=== PATIENT | male | born 1995 | race Caucasian/White ===

== ENCOUNTER 2019-08-22 03:05 | Inpatient (IN) | payer BC, MEDICAID, OTHER ==
[~2019-08-22] VITALS: Ht 193 cm; Wt 140.2 kg
[2019-08-22 03:10] VITALS: BP 140/81
--- NOTE | 2019-08-22 03:10 | NUR ---
TO BED # 11AMBULATORY
--- NOTE | 2019-08-22 03:15 | NUR ---
24 yo male bib mother for c/o r flank pain. pt denies fever chills. pt denies hematuria. pain started around 1630 yesterday. pt aaox4, clear even unlabored breath sounds. denies cp/sob. abd soft non distended. pt voiding clear yellow urine. skin intact. gurney locked in lowest position. hx: denies ax: denies
--- NOTE | 2019-08-22 03:32 | NUR ---
Dr. Nation examining patient
[2019-08-22] MEDS ORDERED: NACL 0.9% 1,000 ML IV ONE (03:34)
[2019-08-22] MEDS ORDERED: ONDANSETRON 4 MG/2 ML VIAL IVP ONE ×2 (03:35→05:45)
[2019-08-22] MEDS ORDERED: KETOROLAC 30 MG/ML VIAL IVP ONE ×2 (03:35→04:00)
[2019-08-22] MEDS ORDERED: MORPHINE SULFATE 4 MG/ML SYR IVP ONE ×2 (03:35→04:00)
[2019-08-22 03:44] LABS: BASOPHILS # (AUTO) 0.1 K/uL (0.00-0.22); BASOPHILS % (AUTO) 0.4 % (0.0-2.0); EOSINOPHILS # (AUTO) 0.1 K/uL (0-0.4); EOSINOPHILS % (AUTO) 0.8 % (0.0-4.0); HEMOGLOBIN 15.2 g/dL (12.0-18.0); LYMPHOCYTES # (AUTO) 3.7 K/uL (2.0-11.5); LYMPHOCYTES % (AUTO) 27.6 % (20.5-51.1); MEAN CORPUSCULAR HEMOGLOBIN 29 pg (27-31); MEAN CORPUSCULAR HGB CONC 34 g/dL (33-37); MEAN CORPUSCULAR VOLUME 87.1 fL (80-94); MONOCYTES # (AUTO) 0.9 K/uL (0.8-1.0); MONOCYTES % (AUTO) 6.9 % (1.7-9.3); NEUTROPHILS # (AUTO) 8.7 K/uL (1.8-7.7); NEUTROPHILS % (AUTO) 64.3 % (42.2-75.2); PLATELET COUNT (AUTO) 233 K/uL (140-450); RED BLOOD CELL COUNT(AUTO) 5.17 MIL/uL (4.20-6.10); RED CELL DISTRIBUTION WIDTH 12.9 % (11.6-13.7); WHITE BLOOD COUNT (AUTO) 13.5 K/uL (4.8-10.8)
[2019-08-22 03:55] LABS: ANION GAP 14.5 (8-16); CARBON DIOXIDE 26.5 mmol/L (21-32); CREATININE 0.9 mg/dL (0.7-1.3)
[2019-08-22 03:57] LABS: APPEARANCE,URINE CLEAR (CLEAR); BILIRUBIN,URINE NEGATIVE (NEGATIVE); BLOOD, URINE NEGATIVE (NEGATIVE); COLOR,URINE YELLOW (YELLOW); LEUKOCYTE ESTERASE ,URINE NEGATIVE (NEGATIVE); NITRITE, URINE NEGATIVE (NEGATIVE); PH,URINE 6.5 (5.0-9.0); UGLUCOSE NEGATIVE (NEGATIVE)
[2019-08-22 04:00] LABS: ALBUMIN 4.5 g/dL (3.4-5.0); TOTAL BILIRUBIN 0.5 mg/dL (0.0-1.0)
--- NOTE | 2019-08-22 04:43 | NUR ---
PT TAKEN TO CT VIA WHEELCHAIR.
--- NOTE | 2019-08-22 05:03 | NUR ---
PT RETURN FROM CT
[2019-08-22] MEDS ORDERED: MORPHINE SULFATE 10 MG/ML VIAL IVP ONE (05:45)
[2019-08-22] MEDS ORDERED: PIPERACILLIN/TAZOBACTAM 3.375 GM in DEXTROSE 5% 50 ML IV ONE (05:45)
[2019-08-22] MEDS ORDERED: metroNIDAZOLE 500 MG/NS PREMIX 100 ML IV ONE (05:45)
[2019-08-22] MEDS ORDERED: PIPERACILLIN/TAZOBACTAM 3.375 GM VIAL IV ONE (05:50)
[2019-08-22] MEDS ORDERED: ONDANSETRON 4 MG/2 ML VIAL IM/IVP PRN (06:35)
[2019-08-22] MEDS ORDERED: MORPHINE SULFATE 2 MG/ML SYR IVP PRN (06:35)
[2019-08-22] MEDS ORDERED: ACETAMINOPHEN 325 MG TAB PO PRN (06:35)
[2019-08-22] MEDS ORDERED: HYDROcodone/APAP 7.5/325 MG 1 TAB PO PRN (06:35)
--- NOTE | 2019-08-22 06:50 | NUR ---
Patient will be admitted to care of dr. nuñez. Admited to [facility] 120A. Belongings list completed. Report to [facility].
[2019-08-22 07:12] LABS: BARBITURATE, URINE NEG. ng/ml (NEG <=200); BENZODIAZEPINE, URINE NEG. ng/mL (NEG <=200); CANNABINOID, URINE POS. ng/mL (NEG <=50); COCAINE, URINE NEG. ng/mL (NEG <=300); OPIATE, URINE NEG. ng/mL (NEG <=2000); PHENCYCLIDINE SCREEN,URINE NEG. ng/mL (NEG <=25)
--- NOTE | 2019-08-22 07:19 | NUR ---
REPORT RECEIVED FROM DENTAL SALES REPRESENTATIVE NURSE CHAVA, PT RESTING QUIETLY IN NAD, RESP EVEN UNLABORED, SKIN WARM DRY, SPEAKS CLEARLY, OX4, DENIES PAIN OR DISCOMFORT AT THIS TIME, MOTHER AT BEDSIDE, PT ORIENTED TO ROOM AND FLOOR, CALL ANDREWS WITHIN REACH, SIDE RAILS UPX2, BED LOCKED IN LOW POSITION, POC DISCUSSED, MRSA SWAB DONE, NO IMMEDIATE NEEDS AT THIS TIME, WILL CONTINUE TO MONITOR.
[2019-08-22 07:30] VITALS: BP 127/83
[2019-08-22] MEDS: NACL 0.9% 1,000 ML IV SCH ×3 (07:30→20:16)
[2019-08-22 07:47] LABS: CHOL/HDL RATIO 3.9 (1-4.5); FREE T4 (FREE THYROXINE) 0.93 ng/dL (0.76-1.46); PHOSPHORUS 4.1 mg/dL (2.5-4.9); THYROID STIMULATING HORMONE 2.8 uIU/mL (0.34-3.74)
--- NOTE | 2019-08-22 07:55 | NUR ---
PT PROVIDED WITH CHLORHEX WIPES, PT REMOVED ALL CLOTHINGS AND REMOVABLE ITEMS, CHANGED IN TO [facility].
--- NOTE | 2019-08-22 08:28 | NUR ---
PT C/O RIGHT LQ ABD PAIN, MEDICATED WITH MORPHINE AT THIS TIME.
[2019-08-22] MEDS ORDERED: BUPIVACAINE-MPF/EPI 0.5% 30 ML VIAL INJ ONE (09:02)
[2019-08-22] MEDS ORDERED: fentaNYL 0.05 MG/ML VIAL ONE (09:03)
[2019-08-22] MEDS ORDERED: HYDROmorphone PFS 2 MG/ML SYR ONE (09:04)
[2019-08-22] MEDS ORDERED: ceFAZolin 1,000 MG VIAL ONE (09:15)
[2019-08-22] MEDS ORDERED: NEOSTIGMINE 1:1000 10 MG/10 ML VIAL ONE (09:20)
[2019-08-22] MEDS ORDERED: DESFLURANE 240 ML BTL INH ONE (09:20)
[2019-08-22] MEDS ORDERED: ROCURONIUM 50 MG/5 ML VIAL IV ONE (09:20)
[2019-08-22] MEDS ORDERED: SUCCINYLCHOLINE CHLORIDE 200 MG/10 ML VIAL IVP ONE ×2 (09:20→09:23)
[2019-08-22] MEDS ORDERED: PROPOFOL 200 MG/20 ML VIAL IV ONE (09:20)
[2019-08-22] MEDS ORDERED: GLYCOPYRROLATE 0.2 MG/ML VIAL ONE (09:20)
[2019-08-22] MEDS ORDERED: ONDANSETRON 4 MG/2 ML VIAL ONE (09:20)
[2019-08-22] MEDS ORDERED: KETOROLAC 30 MG/ML VIAL ONE (09:20)
[2019-08-22] MEDS ORDERED: DEXAMETHASONE 4 MG/ML VIAL ONE (09:20)
--- NOTE | 2019-08-22 09:20 | NUR ---
PT TAKEN TO OR IN BED.
[2019-08-22] MEDS ORDERED: ONDANSETRON 4 MG/2 ML VIAL IVP PRN (11:15)
[2019-08-22] MEDS ORDERED: HYDROmorphone 1 MG/ML AMP IVP PRN (11:15)
[2019-08-22] MEDS ORDERED: CIPR500T4 PO (11:22)
[2019-08-22] MEDS ORDERED: LACTOBACILLUS RHAMNOSUS GG 1 EACH CAP PO SCH (11:27)
[2019-08-22] MEDS: IBUPROFEN 600 MG TAB PO SCH ×2 (12:00→18:48)
--- NOTE | 2019-08-22 12:30 | NUR ---
PT RETURNED BACK FROM PACU, PT ACTIVELY VOMITING, REPORT RECEIVED FROM [facility], WILL MEDICATE WITH ZOFRAN
--- NOTE | 2019-08-22 13:30 | NUR ---
PT SLEEPING QUIETLY IN NO ACUTE DISTRESS, PT'S MOTHER AT BEDSIDE. VITALS STABLE, SEE POST OP VS SHEET.
[2019-08-22] MEDS: PIPERACILLIN/TAZOBACTAM 3.375 GM in DEXTROSE 5% 50 ML IV SCH ×3 (13:42→23:18)
[2019-08-22] MEDS: metroNIDAZOLE 500 MG/NS PREMIX 100 ML IV SCH ×2 (14:36→20:16)
--- NOTE | 2019-08-22 15:20 | NUR ---
PATIENT HAS BEEN SCREENED AND CATEGORIZED LOW NUTRITION RISK. PATIENT WILL BE SEEN WITHIN 7 DAYS OF ADMISSION. 08/29/[address]
--- NOTE | 2019-08-22 15:38 | NUR ---
PAIN MED GIVEN FOR ABD PAIN 05/07, PT MOVED TO ROOM 106A, DENIES N/V, SHASTA CLEAR LIQ WELL, PT WANTS TO ADVANCE DIET, PER DR AGOSTO, PT TO REMAIN CLEAR LIQ UNTIL TOMORROW PER DR BAEZA. PT MADE AWARE, UNDERSTANDS
[2019-08-22 16:00] VITALS: BP 100/53
--- NOTE | 2019-08-22 16:45 | NUR ---
PT SLEEPING IN NO ACUTE DISTRESS, MOTHER AT BEDSIDE, DENIES ANY NEEDS, ALL SAFETY MEASURES IN PLACE.
--- NOTE | 2019-08-22 18:53 | NUR ---
PT UP OUT OF BED WITHOUT ASSIST, AMBULATES TO BATHROOM WITH STEADY GAIT, DENIES FEELING DIZZY OR LIGHT HEADED, IV ZOSYN STARTED PER ORDER.
--- NOTE | 2019-08-22 19:15 | NUR ---
REPORT GIVEN TO FALAFEL CART COOK NURSE, PT IN STABLE CONDITION.
--- NOTE | 2019-08-22 19:16 | NUR ---
Received report from AM Shift RN. Patient awake with family at bedside. Denies pain at this time. IV site on L AC running with IVF. Safety precautions in place.
--- NOTE | 2019-08-22 21:15 | NUR ---
Rounds done. Patient awake in bed, watching TV. Denies pain at this time. Will continue to monitor.
--- NOTE | 2019-08-22 23:10 | NUR ---
Rounds done. Patient asleep at this time. Visible chest rise and fall noted. Will continue to monitor.
[2019-08-22] MEDS: HYDROcodone/APAP 5/325 MG 1 TAB TAB PO PRN (23:18)
[2019-08-23] VITALS: BP 110/62
--- NOTE | 2019-08-23 01:07 | NUR ---
Checks done. Patient awake watching on his phone. Denies pain at this time. Will continue to monitor.
[2019-08-23] MEDS: NACL 0.9% 1,000 ML IV SCH ×3 (02:55→14:03)
--- NOTE | 2019-08-23 03:05 | NUR ---
Changed IV fluid bag. Patient denies pain at this time. Resting comfortably in bed. Will continue to monitor.
[2019-08-23] MEDS: metroNIDAZOLE 500 MG/NS PREMIX 100 ML IV SCH ×3 (04:04→20:09)
--- NOTE | 2019-08-23 04:25 | NUR ---
Due Flagyl given. No distress noted.
[2019-08-23] MEDS: HYDROmorphone 1 MG/ML AMP IVP PRN ×3 (04:57→19:06)
[2019-08-23] MEDS: PIPERACILLIN/TAZOBACTAM 3.375 GM in DEXTROSE 5% 50 ML IV SCH ×3 (05:00→17:41)
--- NOTE | 2019-08-23 06:05 | NUR ---
Patient comfortable in bed. Due medications given. Vital stable. Will endorse to AM shift RN for continuity of care.
[2019-08-23 06:56] LABS: HEMATOCRIT 40.1 % (36-52); HEMOGLOBIN 13.2 g/dL (12.0-18.0); LYMPHOCYTES % (AUTO) 14.4 % (20.5-51.1); MEAN CORPUSCULAR HEMOGLOBIN 29 pg (27-31); MEAN CORPUSCULAR HGB CONC 33 g/dL (33-37); MEAN CORPUSCULAR VOLUME 87.6 fL (80-94); MONOCYTES # (AUTO) 0.9 K/uL (0.8-1.0); MONOCYTES % (AUTO) 6.6 % (1.7-9.3); NEUTROPHILS # (AUTO) 10.8 K/uL (1.8-7.7); PLATELET COUNT (AUTO) 211 K/uL (140-450); RED BLOOD CELL COUNT(AUTO) 4.58 MIL/uL (4.20-6.10); RED CELL DISTRIBUTION WIDTH 13.2 % (11.6-13.7); WHITE BLOOD COUNT (AUTO) 13.7 K/uL (4.8-10.8)
--- NOTE | 2019-08-23 07:10 | NUR ---
RECEIVED REPORT FROM EDUCATIONAL MANAGER NURSE. PATIENT IS IN BED, IN STABLE CONDITION. RESPIRATION EVEN AND UNLABORED. IV INTACT TO LAC 18G. IVF INFUSING AT 160ML/HR TOLERATING WELL. WILL CONTINUE TO MONITOR. CALL LIGHT WITHIN REACH.
[2019-08-23 08:00] VITALS: BP 110/58
[2019-08-23] MEDS: LACTOBACILLUS RHAMNOSUS GG 1 EACH CAP PO SCH (08:31)
[2019-08-23] MEDS: IBUPROFEN 600 MG TAB PO SCH ×3 (08:31→17:40)
[2019-08-23 09:54] LABS: MAGNESIUM 1.9 mg/dL (1.8-2.4)
--- NOTE | 2019-08-23 11:00 | NUR ---
RECEIVED REPORT FROM KOLTON JOINER FOR CONTINUITY OF CARE. PATIENT IN STABLE CONDITION.
[2019-08-23] MEDS ORDERED: INFLUENZA VACCINE QUAD 0.5 ML SYR IMVAC PRN (12:05)
[2019-08-23 12:21] LABS: ANION GAP 17.8 (8-16); CARBON DIOXIDE 22.3 mmol/L (21-32); CREATININE 0.7 mg/dL (0.7-1.3); POTASSIUM 4.1 mmol/L (3.5-5.1)
--- NOTE | 2019-08-23 13:00 | NUR ---
PATIENT SITTING DOWN IN BED WITH LUNCH TRAY IN FRONT. NO DISTRESS NOTED. PAIN WITHIN TOLERABLE. SCHEDULED MEDICATIONS DUE GIVEN. WILL CONTINUE TO MONITOR.
--- NOTE | 2019-08-23 14:03 | NUR ---
PATIENT LYING DOWN IN BED SLEEPING, AROUSABLE BY VOICE. NO DISTRESS NOTED. SCHEDULED MEDICATIONS DUE GIVEN. WILL CONTINUE TO MONITOR.
[2019-08-23 16:00] VITALS: BP 110/51
--- NOTE | 2019-08-23 17:44 | NUR ---
PATIENT AMBULATING AROUND [facility] HALLWAYS AND BACK TO BED WITH STEADY GAIT. SCHEDULED MEDICATIONS DUE GIVEN. WILL CONTINUE TO MONITOR.
--- NOTE | 2019-08-23 19:24 | NUR ---
GAVE REPORT TO TRACK WALKER NURSE FOR CONTINUITY OF CARE. PATIENT IN STABLE CONDITION.
--- NOTE | 2019-08-23 19:24 | NUR ---
RECIEVED PT AAOX4 , AMBULATORY , NID , WITH C/O OF PAIN ON SUGICAL SITE - JUST MEDICATED WITH DILAUDID , SURGICAL SITE INTACT AND NO SIGNS OF ACTIVE BLEEDING . NID , V/S WNL , IV SITE INTACT AND PATENT N. REG DIET TOLERATED . ON SAFETY PREACAUTION PROTOCOL - REMINDS THE USE OF CALL LIGHT FOR ASSISTANCE NEEDED - CALL LIGHT WITHIN REACH. PLAN OF CARE DISCUSSED AND VEBALIZE UNDERSTANDING . WILL CONT. TO MONITOR.
--- NOTE | 2019-08-23 22:00 | NUR ---
MADE ROUNDS , NO SIGNS OF DISTRESS NOTED AT THIS TIME. CALL LIGHT WITHIN REACH.
[2019-08-24] VITALS: BP 113/72
--- NOTE | 2019-08-24 | NUR ---
MADE ROUNDS , C/O PAIN - WILL MEDICATED ORDERED . CALL LIGHT WITHIN REACH.
[2019-08-24] MEDS: PIPERACILLIN/TAZOBACTAM 3.375 GM in DEXTROSE 5% 50 ML IV SCH ×5 (00:31→23:34)
[2019-08-24] MEDS: HYDROmorphone 1 MG/ML AMP IVP PRN ×2 (00:31→05:44)
--- NOTE | 2019-08-24 04:00 | NUR ---
MADE ROUNDS , NO SIGNS OF DISTRESS NOTED AT THIS TIME . WILL CONT. TO MONITOR. CALL LIGHT WITHIN REACH.
[2019-08-24] MEDS: metroNIDAZOLE 500 MG/NS PREMIX 100 ML IV SCH ×3 (04:11→20:24)
--- NOTE | 2019-08-24 06:00 | NUR ---
MADE ROUNDS , NO SIGNS OF DISTRESS NOTED AT THIS TIME - SURGICAL SITE / DRESSING DRY AND INTACT - JUST MEDICATED FOR PAIN.
[2019-08-24 06:55] LABS: BASOPHILS % (AUTO) 0.2 % (0.0-2.0); EOSINOPHILS # (AUTO) 0.1 K/uL (0-0.4); EOSINOPHILS % (AUTO) 0.6 % (0.0-4.0); HEMOGLOBIN 12.9 g/dL (12.0-18.0); LYMPHOCYTES # (AUTO) 3.2 K/uL (2.0-11.5); LYMPHOCYTES % (AUTO) 35.9 % (20.5-51.1); MEAN CORPUSCULAR HEMOGLOBIN 29 pg (27-31); MEAN CORPUSCULAR HGB CONC 33 g/dL (33-37); MEAN CORPUSCULAR VOLUME 88.5 fL (80-94); MONOCYTES # (AUTO) 0.6 K/uL (0.8-1.0); MONOCYTES % (AUTO) 7.3 % (1.7-9.3); PLATELET COUNT (AUTO) 206 K/uL (140-450); RED CELL DISTRIBUTION WIDTH 13.3 % (11.6-13.7); WHITE BLOOD COUNT (AUTO) 8.9 K/uL (4.8-10.8)
--- NOTE | 2019-08-24 07:30 | NUR ---
ENDORSED TO AM SHIFT NURSE - POSITIVE BM BUT TOO SMALL AMOUNT PT SAID.
[2019-08-24 07:35] LABS: ANION GAP 12.4 (8-16); CARBON DIOXIDE 26.9 mmol/L (21-32); CREATININE 0.8 mg/dL (0.7-1.3); POTASSIUM 4.3 mmol/L (3.5-5.1)
--- NOTE | 2019-08-24 07:35 | NUR ---
RECEIVED PT FROM SURVEY RESEARCHER NURSE, JULIANNE, PT IS AWAKE, ALERT ORIENTED X 4, LYING ON THE BED WITH SIDE RAISL UP AND CALL LIGHT WITHIN REACH, SURGICAL INCISIONS NOTED ON THE ABDOMINAL ARE, REINFORCED WITH GAUZE AND TRANSPARENT DRESSING, PERIPHERAL LINE ON THE LEFT AC G. 22 WITH NS AT 10ML/HR, PT DENEIS PAIN AND SATURATION WELL AT ROOM AIR, WILL CONTINUE TO MONITOR PT.
[2019-08-24 07:40] LABS: MAGNESIUM 1.9 mg/dL (1.8-2.4); PHOSPHORUS 3.8 mg/dL (2.5-4.9)
[2019-08-24 08:00] VITALS: BP 116/57
[2019-08-24] MEDS: IBUPROFEN 600 MG TAB PO SCH ×3 (08:54→17:11)
[2019-08-24] MEDS: LACTOBACILLUS RHAMNOSUS GG 1 EACH CAP PO SCH (09:00)
--- NOTE | 2019-08-24 09:00 | NUR ---
PT IS AWAKE AND ORAL MEDICATION WERE GIVEN AND TOLERATED IT, NO SIGN OF DISTRESS NOTED AND WILL CONTINUE TO MONITOR PT.
--- NOTE | 2019-08-24 11:17 | NUR ---
PT WAS GIVEN ORAL AND IVPB MEDICATIONS NOW, NO SIGN OF DISTRESS NOTED. WILL CONTINUE TO BE MONITORED.
[2019-08-24] MEDS: NACL 0.9% 1,000 ML IV SCH (13:33)
--- NOTE | 2019-08-24 13:33 | NUR ---
PT WAS GIVEN FLAGYL IVPB NOW.
[2019-08-24] MEDS: HYDROcodone/APAP 5/325 MG 1 TAB TAB PO PRN (13:34)
--- NOTE | 2019-08-24 13:34 | NUR ---
PT WAS GIVEN PAIN MEDICATION FOR A C/O PAIN RATE OF 6/10. WILL RE-ASSESS AND MONITOR PT.
--- NOTE | 2019-08-24 13:35 | NUR ---
PATIENT AMBULATED FROM HIS ROOM TO THE HALLWAY WITH STANDBY ASSIST. Addendum: 08/24/19 at 1420 by Luis Eduardo Ba RN PATIENT'S MOTHER AT BEDSIDE.
[2019-08-24 16:00] VITALS: BP 110/50
--- NOTE | 2019-08-24 17:20 | NUR ---
ROUTINE MEDICATIONS GIVEN. IV ZOSYN INFUSING @100ML/HRS NOW LEFT ANTECUBITAL PERIPHERAL IV.
--- NOTE | 2019-08-24 17:41 | NUR ---
PATIENT AMBULATING IN THE HALLWAY WITH HIS MOTHER.
--- NOTE | 2019-08-24 19:21 | NUR ---
ENDORSED PT TO POWER DIGGER OPERATOR NURSE FOR CONTINUITY OF CARE.
--- NOTE | 2019-08-24 19:22 | NUR ---
RECEIVED BEDSIDE REPORT FROM DAY SHIFT NURSE. PT IS AWAKE, ALERT ORIENTED X 4, LYING ON THE BED WITH SIDE RAISED UP. PT'S MOTHER AT BEDSIDE. 3 SURGICAL INCISIONS NOTED ON THE MID UPPER, MID LOWER, AND LEFT UPPER ABDOMINAL, PT HAVE 3/10 PAIN BUT TOLERABLE AND NO NEED PAIN MED. IV SITE ON LAC 22G WITH NS AT 10ML/HR, PATENT, ASYMPTOMATIC AND INTACT. BED IN LOW POSITION, CALL LIGHT WITHIN REACH.
--- NOTE | 2019-08-24 20:24 | NUR ---
GIVEN FLAGYL MD ORDERED. PT TOLERATED WELL. WILL CONTINUE TO MONITOR.
--- NOTE | 2019-08-24 23:34 | NUR ---
ADMINISTERED ZOSYN MD ORDERED. PT TOLERATE WELL. VS CHECKED, WITHIN PT'S BASELINE. WILL CONTINUE TO MONITOR.
[2019-08-25] VITALS: BP 109/66
--- NOTE | 2019-08-25 01:12 | NUR ---
PT SLEEPING IN BED. NO ACUTE DISTRESS NOTED.
[2019-08-25] MEDS: HYDROcodone/APAP 5/325 MG 1 TAB TAB PO PRN (04:12)
[2019-08-25] MEDS: metroNIDAZOLE 500 MG/NS PREMIX 100 ML IV SCH (04:12)
--- NOTE | 2019-08-25 04:12 | NUR ---
GIVEN FLAGYL MD ORDERED. PT C/O INCISION PAIN 04/07, GIVEN NORCO MD ORDERED. PT TOLERATED WELL.
[2019-08-25] MEDS: PIPERACILLIN/TAZOBACTAM 3.375 GM in DEXTROSE 5% 50 ML IV SCH (05:21)
--- NOTE | 2019-08-25 05:21 | NUR ---
GIVEN ZOSYN MD ORDERED. PT TOLERATED WELL.
[2019-08-25 06:44] LABS: BASOPHILS % (AUTO) 0.4 % (0.0-2.0); EOSINOPHILS # (AUTO) 0.1 K/uL (0-0.4); EOSINOPHILS % (AUTO) 1.2 % (0.0-4.0); HEMATOCRIT 40.8 % (36-52); HEMOGLOBIN 13.6 g/dL (12.0-18.0); LYMPHOCYTES % (AUTO) 34.6 % (20.5-51.1); MEAN CORPUSCULAR HEMOGLOBIN 29 pg (27-31); MEAN CORPUSCULAR HGB CONC 33 g/dL (33-37); MEAN CORPUSCULAR VOLUME 87.9 fL (80-94); MONOCYTES # (AUTO) 0.7 K/uL (0.8-1.0); MONOCYTES % (AUTO) 7.8 % (1.7-9.3); NEUTROPHILS # (AUTO) 4.8 K/uL (1.8-7.7); PLATELET COUNT (AUTO) 222 K/uL (140-450); RED BLOOD CELL COUNT(AUTO) 4.64 MIL/uL (4.20-6.10); RED CELL DISTRIBUTION WIDTH 13.2 % (11.6-13.7); WHITE BLOOD COUNT (AUTO) 8.6 K/uL (4.8-10.8)
[2019-08-25 06:46] LABS: ANION GAP 14.1 (8-16); CARBON DIOXIDE 28.2 mmol/L (21-32); CREATININE 0.8 mg/dL (0.7-1.3); POTASSIUM 4.3 mmol/L (3.5-5.1)
--- NOTE | 2019-08-25 06:48 | NUR ---
PT SLEEPING IN BED. NO ACUTE DISTRESS NOTED.
[2019-08-25 06:49] LABS: PHOSPHORUS 4.3 mg/dL (2.5-4.9)
--- NOTE | 2019-08-25 07:15 | NUR ---
RECEIVED REPORT FROM BUZZLE BUFFER NURSE JIMMY FOR CONTINUITY OF CARE. PT IN STABLE CONDITION. RESPIRATIONS EVEN AND UNLABORED, ROOM AIR. IV INTACT AND PATENT. SAFETY MEASURES IN PLACE. BED IN LOW POSITION. CALL LIGHT AT BED SIDE. WILL CONTINUE TO MONITOR.
[2019-08-25 08:00] VITALS: BP 137/59
[2019-08-25] MEDS: IBUPROFEN 600 MG TAB PO SCH (08:25)
[2019-08-25] MEDS: LACTOBACILLUS RHAMNOSUS GG 1 EACH CAP PO SCH (08:25)
--- NOTE | 2019-08-25 08:25 | NUR ---
GAVE ORDERED DUE MEDICATIONS AT THIS TIME. PT TOLERATED WELL.
[2019-08-25] MEDS ORDERED: LACT10CA1 PO (10:23)
[2019-08-25] MEDS ORDERED: IBUP-2213 PO (10:30)
[2019-08-25] MEDS ORDERED: ACET-9525 PO ×2 (10:30→14:40)
--- NOTE | 2019-08-25 10:33 | NUR ---
PT LYING IN BED TALKING WITH FAMILY AT BEDSIDE. RESPIRATIONS EVEN AND UNLABORED. BED IN LOW POSITION. CALL LIGHT AT BEDSIDE. WILL CONTINUE TO MONITOR.
--- NOTE | 2019-08-25 12:10 | NUR ---
GAVE DISCHARGE INSTRUCTIONS AND WHERE TO CHEMICAL RECOVERY OPERATOR PRESCRIPTIONS FROM HOME PHARMACY. PT VERBALIZED UNDERSTANDING. REMOVED IV, LUMEN INTACT. REMOVED ID BAND. PT WILL GET DRESSED AT THIS TIME.
--- NOTE | 2019-08-25 12:25 | NUR ---
PT LUNCH ARRIVED WILL EAT BEFORE LEAVING. PT IN STABLE CONDITION.
--- NOTE | 2019-08-25 12:35 | NUR ---
WHEELED PT TO LOBBY IN WHEELCHAIR IN STABLE CONDITION WHERE FAMILY WAS WAITING WITH VEHICLE.
== END 2019-08-25 12:35 | disposition home or self-care (01) | DRG 339 ==
LOC: MED 03:05 → MTU 06:32
PROVIDERS: ADMIT General Practice; ATTEND General Practice
PROC: 0DTJ4ZZ Resection of Appendix, Percutaneous Endoscopic Approach (ICD-10-PCS; principal; 2019-08-22 08:30)
DX: K35.33 Acute appendicitis with perforation, localized peritonitis, and gangrene, with abscess (principal); E44.0 Moderate protein-calorie malnutrition; E78.5 Hyperlipidemia, unspecified; K66.0 Peritoneal adhesions (postprocedural) (postinfection); Z83.3 Family history of diabetes mellitus; Z82.49 Family history of ischemic heart disease and other diseases of the circulatory system; Z87.891 Personal history of nicotine dependence; Z68.37 Body mass index [BMI] 37.0-37.9, adult
CPT/HCPCS: 36415; 71045; 80048; 80053; 80305; 81003; 82374; 83036; 83605; 83690; 83735; 83880; 84100; 84439; 84443; 85025; 85610; 85730; 87040; 87081; 88304; 96361; 96365; 96375; 96376; 99285; J0330; J0690; J1100; J1170; J1885; J2270; J2405; J2543; J2704; J2710; J3010; J3490; J7030; J7060; Q0092